=== PATIENT | female | born 1985 | race Caucasian/White ===

== ENCOUNTER 2018-07-30 12:41 | Day surgery (SDC) | payer OTHER, SELFPAY ==
[2018-07-29 10:47] VITALS: BMI 26.6
[2018-07-30] VITALS (11 sets, daily range): BP systolic 109–139; BP diastolic 62–81; PULSE 78–101; RESP 14–22; TEMP 36.1–37; O2SAT 94–100; BMI 26.6
--- NOTE | 2018-07-30 | PATH_ITS ---
[facility] Accession Number: [id number] . 01 Material submitted: . ENDOMETRIAL CURETTINGS . 02 Diagnosis: Endometrial Curettings: Portions of secretory endometrium; negative for glandular hyperplasia, cytologic atypia, and malignancy. Some tissue fragments demonstrate prominent vessels, suggestive of polyp, if clinical and imaging findings are concordant. MRV/08/02/2018 . 02 Electronically signed: . Roselyn Martin MD, Pathologist NPI- [id number] . 01 Gross description: . ENDOMETRIAL CURETTINGS: Received in formalin are minute fragments of mucoid and hemorrhagic material measuring 3.0 x 2.5 x 0.4 cm in aggregate. Submitted in toto in 2 cassettes. /CKI /CKI . 02 Pathologist provided ICD-10: N85.00 . 02 CPT . 489313 Specimen Comment: A duplicate report has been generated due to demographic updates. Performed at: 01 [facility] [address] [facility], [place], [place] [id number] MD Anton Hoover MD Phone: [phone] Performed at: 02 [facility] [address] [place], [place] [id number] MD Garland Bentley MD Phone: [phone]
[2018-07-30] MEDS: LACTATED RINGERS 1,000 ML 100 ML IV (13:31)
--- NOTE | 2018-07-30 13:37 | PM.PREOP ---
Pre-operative Note Interval Note Pre-op Check: Yes History & Physical Reviewed by Physician Changes: No
[2018-07-30] MEDS: DOXYCYCLINE 100 MG VIAL IV (14:00)
--- NOTE | 2018-07-30 14:42 | SUR.OPER ---
Lithotomy on padded OR bed, head on pillow, arms secured on padded arm boards at <90 degrees abduction. Legs secured in padded yellow fins stirrups.
[2018-07-30] MEDS: BUPIVACAINE 0.25% W/ EPI VIAL 50 ML INJ (14:52)
[2018-07-30] MEDS: ONDANSETRON 4 MG/2 ML INJ IV (16:13)
[2018-07-30] MEDS: LORazepam 2 MG/ML SYRINGE 0.25 MG IV ×2 (16:17→16:23)
--- NOTE | 2018-07-30 16:18 | PM.GYNOP.1 ---
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 She has a history of polycystic ovarian syndrome. Additionally, she had 2 prior C-sections, the 2nd of which was complicated by failed trial of labor after and bilateral cervical extensions from the hysterotomy site. She also received 2 units of packed red blood cells with that delivery. Menstrual cycles are regular; however, she is on Metformin to help with ovulation. A hysterosalpingogram performed to evaluate the endometrial cavity was not successful insofar as the uterine endometrial cavity could not be distended and there appeared to be scarring or filling defect at the site of her scar. Tubal patency could not be confirmed with the hysterosalpingogram. The patient was offered a hysteroscopy to evaluate the endometrial cavity. We also discussed diagnostic laparoscopy with chromopertubation to evaluate the fallopian tubes patency. The risks, benefits, limitations, alternatives, and expectations surgery were discussed, and the consent was reviewed and signed prior to the day of surgery. Surgeon: Roula Gill Senior Major Gifts Officer: Job Alfonso Anesthesia Type: General and Local (0.25% marcaine with epi) Operative Notes Findings: Exam under anesthesia: The uterus is felt to be mid plane, approximately 7 weeks in size with no palpable masses. No adnexal masses were palpable Hysteroscopic findings: Initial attempts at dilating the cervix with serial Brett dilators was unsuccessful, with the uterus sounding only to approximately 4 cm. The endometrial cavity was entered with the hysteroscope with difficulty and required posterior placement of the hysteroscope just above the internal cervix. Finally, with gentle pressure, the endometrial cavity was felt to be entered; however, visualization was poor due to bleeding, so the scope was removed. With endometrial curettage, the uterine cavity length seemed appropriate, at approximately 8-9 cm. Endometrial tissue was obtained and sent for pathology. Repeat attempt at hysteroscopy was then more successful. The endometrial cavity was visualized, and the left fallopian tube ostium was seen. The right tubal ostium could not be seen however. The remainder of the endometrial cavity overall appeared normal. With slow retraction of the scope, there did not appear to be any abnormality of the cavity overall or of the upper cervix at the level of the hysterotomy site.. It is unclear if the scope opened scar tissue or if the endometrium is aligned posteriorly making it difficult to dilate or place the scope. The Zumi uterine manipulator could then be placed, again with careful pressure posteriorly, then turning anteriorly to inflate the balloon successfully. Total hysteroscopic fluid in was 2500 mL of sterile saline. Total hysteroscopic fluid out was 2100 mL for a total fluid deficit of 400 mL. Laparoscopic findings: Omental adhesions were present inferior and posterior to the umbilicus. These were left in situ. The liver edge appeared normal. The uterus was slightly enlarged at approximately 8 weeks size and had a slightly boggy appearance. The fallopian tubes and ovaries were normal in appearance bilaterally. With chromopertubation, dilute methylene blue was noted to expel out the ends of both fallopian tubes. There was extensive scarring at the level of the prior site, including a more cystic area of scarring at the left midportion of the surgical site. This scarring was left in situ given its positioning adjacent to the bladder, possibly the risking injury to the bladder. There was no evidence of endometriosis. There was no scarring in the posterior cul-de-sac there was a thin band of scar tissue from the right ovary into the right posterior uterus. Closure Type: primary Specimen(s): endometrial curettings Estimated blood loss (mL): 20 Blood products transfused: none Procedure in detail: The patient was taken to the operating room where general endotracheal anesthesia was administered without difficulty. She was then placed in the low dorsal lithotomy position with her lower extremities in Yellofin stirrups. Exam under anesthesia was then performed with the findings as noted above. The perineum and vagina were then prepped and draped in a sterile fashion, and a doran catheter was placed. Procedure Time-Out was performed. A sterile bivalve speculum was then placed. The anterior lip of the cervix was then grasped with a single-toothed tenaculum. Local anesthetic using 0.25% Marcaine with epinephrine was then injected at the 2:00, 4:00, 7:00, and 10:00 positions for a paracervical block. Attempts were made to dilate the cervix. This was initially unsuccessful, so the hysteroscopy was started to carefully identify the endometrial canal. A 22 F 30-degree hysteroscope was inserted into the cervical os and finally entered the endometrial cavity after applying careful pressure posteriorly. Using saline for distention, visualization was poor due to bleeding. Therefore, the decision was made to remove the scope and proceed with a curettage. A small to medium-sized uterine curette could be advanced to the uterine fundus with channel pressure posteriorly. Moderate amount of endometrial tissue was obtained from all 4 caban of the endometrial cavity. This was sent for pathology. The hysteroscope was then replaced; and, using saline for distention, the endometrial cavity was better visualized. The left tubal ostium was visualized. However the right tubal ostium could not be seen. The remainder of the endometrial cavity appeared normal, and there was no evidence of endometrial adhesions. The hysteroscope was then removed. A Zumi uterine manipulator was then placed, and then had to be rotated from posterior to anterior in order to affectively inflate the balloon and keep the device in place. The manipulator had been primed with diluted methylene blue for chromopertubation. The tenaculum and speculum were then removed from the vagina and attention was turned to the laparoscopic portion of the case. Local anesthetic was then injected infraumbilically using 0.25% Marcaine. A vertical skin incision was then made with a scalpel below the umbilicus measuring approximately 7 mm in length. The abdominal wall was then grasped and tented up while a Veress needle was inserted through the incision. This required several attempts and was finally successful with a long Veress needle. With the last placement, saline drop test was finally suggestive of intraperitoneal placement. Carbon dioxide gas insufflation was then performed with appropriate opening pressures noted. After instilling approximately 2 L of carbon dioxide, a 5 mm 0 degree laparoscope within a 5 mm trocar was inserted through the anterior layers of the abdominal wall using Optiview technique. The abdomen and pelvis were visualized with the findings as noted above. The was evidence of some bleeding at the omentum just below the umbilicus, likely secondary to the Veress needles placement attempts. This area of bleeding was very mild, was not expanding, and appeared stable throughout the laparoscopic portion of the case. The patient was placed into Trendelenburg position for better visualization. Second and third trocars were inserted at the patient's right and left lower quadrants. This was done by first instilling local anesthetic, then incising the skin and inserting a 5 mm trocar under direct visualization using the laparoscopic. An atraumatic grasper was then utilized to manipulate the tissue and improve visualization throughout the pelvis. Once the findings were noted, chromopertubation was performed by instilling the diluted methylene blue through the Zumi, using a sterile syringe. Once the chromopertubation was complete, one last visualization of the omental site bleeding confirmed no evidence of continued bleeding. The carbon dioxide gas was then allowed to escape and the trocars removed from the abdomen. The trocar sites were then closed with 4-0 Monocryl in a subcuticular fashion. Exofin skin glue was then applied. Attention was then returned to the patient's perineum, where the uterine manipulator balloon was deflated and the uterine manipulator removed. The tenaculum sites were hemostatic after application of silver nitrate. The speculum was then removed from the vagina. At this point the procedure was deemed complete. Sponge, lap, and needle count were correct x3. The patient was subsequently awakened, extubated, and transferred to the PACU in stable condition. Complications: none Post-operative Condition: stable Disposition: same day surgery Plan for aftercare: PACU then home. See handout for precautions and limitations.
[2018-07-30] MEDS: fentaNYL 100 MCG/2 ML INJ IV (16:25)
== END 2018-07-30 17:30 | disposition home or self-care (01) ==
PROVIDERS: PCP Family Medicine; Visit Provider Obstetrics & Gynecology
PROC: 0UDB8ZZ Extraction of Endometrium, Via Natural or Artificial Opening Endoscopic (ICD-10-PCS; CPT 58558; principal; 2018-07-30 14:15)
PROC: (CPT 49320; 2018-07-30 14:15)
DX: N85.00 Endometrial hyperplasia, unspecified (principal); E28.2 Polycystic ovarian syndrome; E66.9 Obesity, unspecified; K66.0 Peritoneal adhesions (postprocedural) (postinfection)
CPT/HCPCS: 49320; 58558; 58350; J1100; J1885; J2060; J2250; J2405; J2704; J3010